=== PATIENT | male | born 1965 | race Caucasian/White ===

== ENCOUNTER 2018-03-28 17:39 | Emergency (ER) | payer MEDICAID ==
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
== END 2018-03-28 18:15 | disposition home or self-care (01) ==
LOC: ER 17:39
DX: S86.911A Strain of unspecified muscle(s) and tendon(s) at lower leg level, right leg, initial encounter (principal); X50.1XXA Overexertion from prolonged static or awkward postures, initial encounter; Y93.01 Activity, walking, marching and hiking; I10 Essential (primary) hypertension; Z87.891 Personal history of nicotine dependence
CPT/HCPCS: 99282

== ENCOUNTER 2019-06-19 17:13 | Emergency (ER) | payer MEDICAID ==
[2019-06-19] MEDS ORDERED: ACETAMINOPHEN 1,000 MG/100 ML BTL IVPB ONE (17:40)
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
[2019-06-19 17:52] LABS: ABSOLUTE NEUTROPHIL COUNT 6.09; BASO % 0.4 % (0-6); EOS % 3.7 % (0-6); GRAN % 68.5 % (47-80); HEMATOCRIT 41.7 % (42.0-52.0); LYMPH % 19.1 % (16-45); MEAN CELL VOLUME 87.1 fl (81-97); MEAN CORPUSCULAR HEMOGLOBIN 29.2 pg (27-33); MEAN CORPUSCULAR HGB CONC 33.6 g/dl (32-36); MEAN PLATELET VOLUME 8.8 fl (7.4-10.4); MONO % 8.3 % (0-9); PLATELET COUNT 221 K/uL (130-400); RED BLOOD COUNT 4.79 M/uL (4.40-5.70); RED CELL DISTRIBUTION WIDTH 13.7 % (11.5-14.5); WHITE BLOOD COUNT W/O DIFF 8.9 K/uL (4.2-12.2)
[2019-06-19 18:05] LABS: BLOOD UREA NITROGEN 10 mg/dL (6-20); CREATININE 1.1 mg/dL (0.7-1.2); EST GLOMERULAR FILTRATION RATE > 60 mL/min
[2019-06-19 18:06] LABS: INR 1.5; PARTIAL THROMBOPLASTIN TIME 32.7 SECONDS (24.5-39.1); PROTHROMBIN TIME (PATIENT) 14.7 SECONDS (9.5-12.1)
[2019-06-19 18:08] LABS: GLUCOSE,RANDOM 83 mg/dL (74-109)
[2019-06-19] MEDS ORDERED: ENOXAPARIN 100 MG/ML SYR SQ ONE (18:19)
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
== END 2019-06-19 18:35 | disposition left against medical advice (07) ==
LOC: ER 17:13
DX: M79.651 Pain in right thigh (principal); I10 Essential (primary) hypertension; F17.210 Nicotine dependence, cigarettes, uncomplicated; Z86.718 Personal history of other venous thrombosis and embolism; Z79.01 Long term (current) use of anticoagulants
CPT/HCPCS: 80048; 85025; 85610; 85730; 96365; 96372; 99285; J1650